=== PATIENT | male | born 1950 ===

== ENCOUNTER 2021-06-21 16:00 | Emergency (ER) | payer MEDICARE, OTHER | END 2021-06-21 16:46 | disposition left against medical advice (07) | LOC: EMS 16:15 | DX: S49.90XA Unspecified injury of shoulder and upper arm, unspecified arm, initial encounter (principal); Z53.21 Procedure and treatment not carried out due to patient leaving prior to being seen by health care provider; X58.XXXA Exposure to other specified factors, initial encounter ==